=== PATIENT | female | born 1970 | race African-American/Black ===

== ENCOUNTER 2017-06-12 14:12 | Inpatient (IN) | payer OTHER ==
[~2017-06-12] VITALS: Ht 162.6 cm; Wt 87.1 kg
[~2017-06-12 14:12] MED LIST: ATORVASTATIN CA40 M1 PO; COL100 PO; CORE25 PO; DICLOFENAC SODI75 MG PO; ELA50 GT; FUROSEMIDE20 MG PO; IMDUR30 MG PO; LEVOTHYROXIN0.025 M2 PO; MACROBID100 MG PO; NEURONTIN600 MG PO; NITROSTAT0.4 MG SL; PAXIL20 MG PO; PEPCID20 MG PO; PER5 PO; PLA75 PO; RANEXA1000 M1 PO; TIZANIDINE HCL4 MG PO; TOPAMAX25 MG PO
[2017-06-12 16:55] LABS: BASOPHIL % 0.4 % (0-2); PLATELET COUNT 341 x10^3mcL (130-400); RED CELL DISTRIBUTION WIDTH 13.8 % (11.5-14.5)
[2017-06-12 17:00] LABS: CALCIUM 9.4 mg/dL (8.5-10.1); CARBON DIOXIDE 20.7 mmol/L (21-32); CREATININE SERUM 1.1 mg/dL (0.6-1.0); POTASSIUM SERUM 3.1 mmol/L (3.5-5.1)
[2017-06-12 17:04] LABS: ALBUMIN 4.7 g/dL (3.4-5.0); BILIRUBIN TOTAL 0.6 mg/dL (0.20-1.00); CHOLESTEROL/HDL RATIO 2.9; TOTAL PROTEIN, SERUM 10.2 g/dL (6.4-8.2)
[2017-06-12 17:11] LABS: FREE T4 1.26 ng/dL (0.76-1.46); FREE THYROXINE INDEX 4.2 ug/dL (1.4-4.5); T4(THYROXINE) 12.3 ug/dL (4.7-13.3)
[2017-06-12 17:37] LABS: T3 TOTAL 0.72 ng/mL
[2017-06-12] MEDS ORDERED: I20 PO (18:12)
[2017-06-12] MEDS ORDERED: NIFEDIPINE ER90 M2 PO (18:12)
[2017-06-12] MEDS ORDERED: LASIX40 MG PO (18:12)
[2017-06-12] MEDS ORDERED: PATADAY2.5 ML OU (18:13)
[2017-06-12] MEDS ORDERED: VOLTAREN TOP (18:14)
[2017-06-12] MEDS ORDERED: TIZANIDINE HCL4 MG PO (18:15)
[2017-06-12] MEDS ORDERED: LIDOCAINE51 TOP (18:16)
[2017-06-12] MEDS ORDERED: PAXIL10 MG PO (18:21)
[2017-06-12] MEDS ORDERED: RANEXA1000 M2 PO (18:23)
[2017-06-12] MEDS ORDERED: TOPAMAX100 MG PO (18:23)
[2017-06-12] MEDS ORDERED: AMBIEN10 MG PO (18:24)
[2017-06-12 18:43] LABS: MAGNESIUM 2.2 mg/dL (1.8-2.4); PHOSPHOROUS 3.5 mg/dL (2.5-4.9)
[2017-06-12 18:54] VITALS: BP 150/92
[2017-06-12 20:23] LABS: UA SPECIFIC GRAVITY 1.025 (1.005-1.035); microscopic required? YES; urine erythrocyte NEGATIVE (NEGATIVE)
[2017-06-12 20:30] LABS: AMPHETAMINE QUAL UR NONE DETECTED (NEG <=1000)
[2017-06-12 21:49] VITALS: BP 144/81
[2017-06-13 03:30] VITALS: BP 130/78
[2017-06-13 06:39] LABS: BASOPHIL % 0.3 % (0-2); PLATELET COUNT 260 x10^3mcL (130-400); RED CELL DISTRIBUTION WIDTH 13.7 % (11.5-14.5)
[2017-06-13 07:23] LABS: CALCIUM 8.4 mg/dL (8.5-10.1); CARBON DIOXIDE 22.8 mmol/L (21-32); CREATININE SERUM 1.1 mg/dL (0.6-1.0); POTASSIUM SERUM 4.2 mmol/L (3.5-5.1)
[2017-06-13 07:33] VITALS: BP 89/53
[2017-06-13 09:14] VITALS: BP 93/46
[2017-06-13 11:15] VITALS: BP 111/79
[2017-06-13] MEDS ORDERED: LACTULOSE10 GM/152 PO (12:35)
[2017-06-13 16:51] VITALS: BP 111/79
== END 2017-06-13 17:25 | disposition home or self-care (01) | DRG 243 ==
LOC: ED 14:12 → DU 17:26
PROVIDERS: Specialist; ADMIT Family Medicine
DX: K21.9 Gastro-esophageal reflux disease without esophagitis (principal); N17.0 Acute kidney failure with tubular necrosis; M94.0 Chondrocostal junction syndrome [Tietze]; I25.2 Old myocardial infarction; E87.6 Hypokalemia; I16.0 Hypertensive urgency; I25.10 Atherosclerotic heart disease of native coronary artery without angina pectoris; Z95.5 Presence of coronary angioplasty implant and graft; Z88.5 Allergy status to narcotic agent; Z88.8 Allergy status to other drugs, medicaments and biological substances; I10 Essential (primary) hypertension; I11.0 Hypertensive heart disease with heart failure; I50.9 Heart failure, unspecified; E03.9 Hypothyroidism, unspecified; M19.90 Unspecified osteoarthritis, unspecified site; E78.5 Hyperlipidemia, unspecified; Z90.49 Acquired absence of other specified parts of digestive tract; Z98.51 Tubal ligation status; Z82.49 Family history of ischemic heart disease and other diseases of the circulatory system; E66.9 Obesity, unspecified; Z68.33 Body mass index [BMI] 33.0-33.9, adult; J45.909 Unspecified asthma, uncomplicated
CPT/HCPCS: 83880; 84439; 94150; J1170; J1200; J2405; J3490; J7030; Q0092; Q0163

== ENCOUNTER 2018-07-07 09:06 | Inpatient (IN) | payer OTHER ==
[~2018-07-07] VITALS: Ht 162.6 cm; Wt 80.9 kg
[~2018-07-07 09:06] MED LIST changes: +AMBIEN10 MG PO; +I20 PO; +LACTULOSE10 GM/152 PO; +LASIX40 MG PO; +LIDOCAINE51 TOP; +NIFEDIPINE ER90 M2 PO; +PATADAY2.5 ML OU; +PAXIL10 MG PO; +RANEXA1000 M2 PO; +TOPAMAX100 MG PO; +VOLTAREN TOP
[2018-07-07 10:56] LABS: CALCIUM 8.6 mg/dL (8.5-10.1); CARBON DIOXIDE 21.8 mmol/L (21-32); CHLORIDE SERUM 109 mmol/L (98-107); CREATININE SERUM 0.9 mg/dL (0.6-1.0); GFR1 > 60 mL/min; GLUCOSE SERUM 101 mg/dL (74-106); POTASSIUM SERUM 3.2 mmol/L (3.5-5.1); SODIUM SERUM 142 mmol/L (136-145)
[2018-07-07 11:01] LABS: ALBUMIN 3.1 g/dL (3.4-5.0); ALKALINE PHOSPHATASE 71 U/L (46-116); ALT/SGPT 12 U/L (14-59); AST/SGOT 8 U/L (15-37); BASOPHIL % 0.3 % (0-2); BILIRUBIN TOTAL 0.3 mg/dL (0.20-1.00); PLATELET COUNT 251 x10^3mcL (130-400); RED CELL DISTRIBUTION WIDTH 14.5 % (11.5-14.5); TOTAL PROTEIN, SERUM 7.6 g/dL (6.4-8.2)
[2018-07-07 11:12] LABS: C REACTIVE PROTEIN < 0.2 mg/dL (<=0.9)
[2018-07-07] MEDS ORDERED: TOPAMAX100 MG PO (12:23)
[2018-07-07 12:24] LABS: ERYTHROCYTE SED RATE 19 mm/hr (0-20)
[2018-07-07] MEDS ORDERED: PERCOCET1 TA5 PO (12:24)
[2018-07-07 14:49] LABS: CHOLESTEROL/HDL RATIO 2.3; MAGNESIUM 1.7 mg/dL (1.8-2.4); PHOSPHOROUS 4.6 mg/dL (2.5-4.9)
[2018-07-07 14:58] LABS: T3 TOTAL 0.95 ng/mL
[2018-07-07 15:05] VITALS: BP 196/118
[2018-07-07 16:26] LABS: FREE T4 0.76 ng/dL (0.76-1.46); FREE THYROXINE INDEX 1.6 ug/dL (1.4-4.5); T4(THYROXINE) 5.2 ug/dL (4.7-13.3)
[2018-07-07 16:27] VITALS: BP 152/108
[2018-07-07 18:28] LABS: IRON 81 ug/dL (50-170); TOTAL IRON BINDING CAPACITY 271 ug/dL (250-450)
[2018-07-07 18:46] LABS: microscopic required? NO
[2018-07-07 19:33] LABS: urine erythrocyte NEGATIVE (NEGATIVE)
[2018-07-07 20:07] LABS: AMPHETAMINE QUAL UR NONE DETECTED (See below)
[2018-07-07 20:15] VITALS: BP 127/88
[2018-07-08] VITALS (11 sets, daily range): BP systolic 81–124; BP diastolic 48–83; Ht 162.6 cm; Wt 80.9 kg
[2018-07-08 07:02] LABS: BASOPHIL % 0.6 % (0-2); PLATELET COUNT 272 x10^3mcL (130-400); RED CELL DISTRIBUTION WIDTH 14.4 % (11.5-14.5)
[2018-07-08 07:40] LABS: CALCIUM 8.4 mg/dL (8.5-10.1); CARBON DIOXIDE 23.4 mmol/L (21-32); CHLORIDE SERUM 108 mmol/L (98-107); GFR1 > 60 mL/min; GLUCOSE SERUM 97 mg/dL (74-106); POTASSIUM SERUM 4.5 mmol/L (3.5-5.1); SODIUM SERUM 139 mmol/L (136-145)
[2018-07-08] MEDS ORDERED: DILAUDID2 MG PO (17:49)
== END 2018-07-08 18:55 | disposition home or self-care (01) | DRG 351 ==
LOC: ED 09:06 → MU 12:26 → DU 12:26
PROVIDERS: Family Medicine; Specialist
DX: M25.461 Effusion, right knee (principal); I11.0 Hypertensive heart disease with heart failure; E44.0 Moderate protein-calorie malnutrition; E83.42 Hypomagnesemia; I50.9 Heart failure, unspecified; I25.10 Atherosclerotic heart disease of native coronary artery without angina pectoris; Z96.651 Presence of right artificial knee joint; E78.00 Pure hypercholesterolemia, unspecified; D63.8 Anemia in other chronic diseases classified elsewhere; I16.0 Hypertensive urgency; I25.2 Old myocardial infarction; Z76.5 Malingerer [conscious simulation]; Z86.718 Personal history of other venous thrombosis and embolism; Z90.49 Acquired absence of other specified parts of digestive tract; Z98.51 Tubal ligation status; Z79.899 Other long term (current) drug therapy; Z82.49 Family history of ischemic heart disease and other diseases of the circulatory system; Z80.9 Family history of malignant neoplasm, unspecified; Z79.01 Long term (current) use of anticoagulants; Z88.6 Allergy status to analgesic agent; Z88.5 Allergy status to narcotic agent; Z95.5 Presence of coronary angioplasty implant and graft; Z90.89 Acquired absence of other organs; Z68.30 Body mass index [BMI] 30.0-30.9, adult
CPT/HCPCS: 84439; 90658; J1170; J1885; J2060; J2405; J2543; J3010; J3370; J3475; J7030; J7050; Q0092; Q0163